=== PATIENT | female | born 1970 | race Caucasian/White ===

== ENCOUNTER → 2020-09-09 | Day surgery (SDC) | payer OTHER ==
[~2020-09-09] VITALS: Ht 165.1 cm; Wt 163.3 kg
[~2020-09-09] MED LIST: ALDACTONE 25MG25 MG PO; ASPIRIN81 MG PO; CELECOXIB100 MG PO; CITALOPRAM HBR40 MG PO; CLARITIN 10MG T10 MG PO; COZAAR 50MG TAB50 MG PO; CRESTOR5 MG PO; FERROUS SULFAT325 MG PO; FUROSEMIDE20 MG PO; GABAPENTIN600 MG PO; HUMULIN R100 UNIT/1 SQ; ISOSORBIDE MONO60 MG PO; MONTELUKAST SOD10 MG PO; NORTRIPTYLINE H75 MG PO; OMEPRAZOLE20 MG PO; POTASSIUM CHLO10 ME1 PO; PRIMIDONE50 MG PO; TENORMIN 50 MG50 MG PO; TOPIRAMATE25 MG PO; TOPIRAMATE50 MG PO; TRULICITY4.5 MG/0.5 SQ; VITAMIN D21250 MCG PO
== END | disposition home or self-care (01) ==
LOC: OR 06:49
DX: Z12.11 Encounter for screening for malignant neoplasm of colon (principal); K31.89 Other diseases of stomach and duodenum; K74.60 Unspecified cirrhosis of liver; K76.6 Portal hypertension; K64.8 Other hemorrhoids; I10 Essential (primary) hypertension; M19.90 Unspecified osteoarthritis, unspecified site; G43.909 Migraine, unspecified, not intractable, without status migrainosus; G90.50 Complex regional pain syndrome I, unspecified; E11.40 Type 2 diabetes mellitus with diabetic neuropathy, unspecified; E11.43 Type 2 diabetes mellitus with diabetic autonomic (poly)neuropathy; K72.90 Hepatic failure, unspecified without coma; Z85.43 Personal history of malignant neoplasm of ovary; Z85.42 Personal history of malignant neoplasm of other parts of uterus; E03.9 Hypothyroidism, unspecified; E66.01 Morbid (severe) obesity due to excess calories; J45.909 Unspecified asthma, uncomplicated; Z88.0 Allergy status to penicillin; Z88.2 Allergy status to sulfonamides; Z88.8 Allergy status to other drugs, medicaments and biological substances
CPT/HCPCS: 43239; G0121; J2704; J7040